=== PATIENT | male | born 1990 | race Caucasian/White ===

== ENCOUNTER 2018-07-15 15:48 | Emergency (ER) | payer OTHER ==
[~2018-07-15 15:48] MED LIST: ANAPROX DS550 MG PO; CIPROFLOXACIN500 MG PO; FLEXERIL5 MG PO; FLOMAX0.4 MG PO; ROBAXIN750 MG PO
[2018-07-15 16:16] LABS: BASO # 0.1 10*3/uL (0.0-0.1); BASO % 0.6 % (0.0-1.0); EOS # 0.1 10*3/uL (0.0-0.4); EOS % 1.1 % (1.0-4.0); HEMATOCRIT 42.8 % (42.0-52.0); HEMOGLOBIN 15.2 g/dl (14.0-18.0); LYMPH # 3.3 10*3/uL (1.3-4.4); LYMPH % 25.8 % (27.0-41.0); MEAN CELL VOLUME 88.4 fl (80.0-94.0); MEAN CORPUSCULAR HGB 31.4 pg (27.0-31.0); MEAN CORPUSCULAR HGB CONC 35.5 g/dl (33.0-37.0); MEAN PLATELET VOLUME 10.3 fl (9.6-12.3); MONO # 1.1 10*3/uL (0.1-1.0); MONO % 8.6 % (3.0-9.0); NEUT # 8.1 10*3/uL (2.3-7.9); NEUT % 63.7 % (47.0-73.0); PLATELET COUNT AUTOMATED 317 10*3/uL (130-400); RED BLOOD COUNT 4.84 10*6/uL (4.50-5.90); RED CELL DISTRI WIDTH 12.6 % (0-14.5); WHITE BLOOD COUNT 12.7 10*3/uL (4.8-10.8)
[2018-07-15 16:31] LABS: ALKALINE PHOSPHATASE 61 U/L (45-117); BUN 10 mg/dl (7-24); CHLORIDE 109 mmol/L (98-107); CREATININE 0.96 mg/dL (0.70-1.30); POTASSIUM 3.9 mmol/L (3.5-5.1); SGOT/AST 21 IU/L (3-35); SGPT/ALT 39 U/L (12-78); SODIUM 141 mmol/L (136-145); TOTAL PROTEIN 7.5 gm/dL (6.4-8.2)
[2018-07-15] MEDS ORDERED: PREDNISONE10 MG PO (16:42)
[2018-07-15] MEDS ORDERED: ZOFRAN4 MG PO (16:42)
[2018-07-15] MEDS ORDERED: CLARITIN10 MG PO (16:42)
[2018-07-15] MEDS ORDERED: FLONASE ALLERG9.9 ML NAS (16:42)
== END 2018-07-15 17:10 | disposition home or self-care (01) ==
LOC: ED 15:48
PROVIDERS: Nurse Practitioner Family
DX: B34.9 Viral infection, unspecified (principal); M54.5 Low back pain; R11.2 Nausea with vomiting, unspecified; R91.8 Other nonspecific abnormal finding of lung field; Z88.8 Allergy status to other drugs, medicaments and biological substances; Z91.040 Latex allergy status

== ENCOUNTER 2018-07-23 15:17 | Emergency (ER) | payer OTHER ==
[~2018-07-23 15:17] MED LIST changes: +CLARITIN10 MG PO; +FLONASE ALLERG9.9 ML NAS; +PREDNISONE10 MG PO; +ZOFRAN4 MG PO
[2018-07-23] MEDS ORDERED: ZITHROMAX250 MG PO (17:29)
== END 2018-07-23 17:50 | disposition home or self-care (01) ==
LOC: ED 15:17
DX: J40 Bronchitis, not specified as acute or chronic (principal)

== ENCOUNTER 2020-09-10 15:31 | Emergency (ER) | payer OTHER ==
[~2020-09-10] VITALS: Wt 95.3 kg
[~2020-09-10 15:31] MED LIST changes: +ZITHROMAX250 MG PO
[2020-09-10 17:52] LABS: BASO # 0.1 10*3/uL (0.0-0.1); BASO % 0.4 % (0.0-1.0); EOS % 0.3 % (1.0-4.0); LYMPH # 2.5 10*3/uL (1.3-4.4); LYMPH % 18.9 % (27.0-41.0); MEAN CELL VOLUME 90.7 fl (80.0-94.0); MEAN CORPUSCULAR HGB 31.1 pg (27.0-31.0); MEAN CORPUSCULAR HGB CONC 34.3 g/dl (33.0-37.0); MEAN PLATELET VOLUME 10.2 fl (9.6-12.3); MONO # 0.9 10*3/uL (0.1-1.0); MONO % 6.6 % (3.0-9.0); NEUT # 9.6 10*3/uL (2.3-7.9); NEUT % 73.5 % (47.0-73.0); PLATELET COUNT AUTOMATED 334 10*3/uL (130-400); RED BLOOD COUNT 5.18 10*6/uL (4.50-5.90); RED CELL DISTRI WIDTH 12.7 % (0-14.5); WHITE BLOOD COUNT 13.1 10*3/uL (4.8-10.8)
[2020-09-10 18:05] LABS: ALBUMIN 4.1 gm/dl (3.1-4.5); ALKALINE PHOSPHATASE 68 U/L (45-117); BUN 10 mg/dl (7-24); CHLORIDE 108 mmol/L (98-107); CREATININE 1.06 mg/dL (0.70-1.30); POTASSIUM 3.8 mmol/L (3.5-5.1); SGOT/AST 33 IU/L (3-35); SGPT/ALT 58 U/L (12-78); SODIUM 143 mmol/L (136-145); TOTAL PROTEIN 7.4 gm/dL (6.4-8.2)
[2020-09-10] MEDS ORDERED: PREDNISONE10 MG PO (18:16)
[2020-09-10] MEDS ORDERED: BENADRYL ALLERG25 M4 PO (18:16)
== END 2020-09-10 18:43 | disposition home or self-care (01) ==
LOC: ED 15:31
PROVIDERS: Family Medicine
DX: T78.40XA Allergy, unspecified, initial encounter (principal); Z79.899 Other long term (current) drug therapy; Z98.890 Other specified postprocedural states; X58.XXXA Exposure to other specified factors, initial encounter

== ENCOUNTER → 2020-11-17 | Outpatient (CLI) | payer OTHER ==
[~2020-11-17] MED LIST changes: +BENADRYL ALLERG25 M4 PO
== END | disposition home or self-care (01) ==
LOC: RAD 10:48
PROVIDERS: ATTEND Internal Medicine
DX: M79.672 Pain in left foot (principal)

== ENCOUNTER 2021-02-04 15:57 | Emergency (ER) | payer OTHER ==
[~2021-02-04] VITALS: Ht 180.3 cm; Wt 99.8 kg
[2021-02-04 19:02] LABS: BASO % 0.5 % (0.0-1.0); EOS % 0.3 % (1.0-4.0); HEMATOCRIT 43.5 % (42.0-52.0); LYMPH # 2.4 10*3/uL (1.3-4.4); LYMPH % 30.5 % (27.0-41.0); MEAN CORPUSCULAR HGB 30.7 pg (27.0-31.0); MEAN CORPUSCULAR HGB CONC 34.5 g/dl (33.0-37.0); MEAN PLATELET VOLUME 10.1 fl (9.6-12.3); NEUT # 4.3 10*3/uL (2.3-7.9); NEUT % 55.4 % (47.0-73.0); PLATELET COUNT AUTOMATED 263 10*3/uL (130-400); RED BLOOD COUNT 4.89 10*6/uL (4.50-5.90); RED CELL DISTRI WIDTH 12.5 % (0-14.5); WHITE BLOOD COUNT 7.8 10*3/uL (4.8-10.8)
[2021-02-04 19:18] LABS: ALBUMIN 3.7 gm/dl (3.1-4.5); ALKALINE PHOSPHATASE 59 U/L (45-117); BUN 11 mg/dl (7-24); CHLORIDE 109 mmol/L (98-107); CREATININE 0.88 mg/dL (0.70-1.30); POTASSIUM 3.8 mmol/L (3.5-5.1); SGOT/AST 55 IU/L (3-35); SGPT/ALT 102 U/L (12-78); SODIUM 140 mmol/L (136-145); TOTAL PROTEIN 7.3 gm/dL (6.4-8.2)
[2021-02-04] MEDS ORDERED: ZOFRAN4 MG PO (19:57)
== END 2021-02-04 20:00 | disposition home or self-care (01) ==
LOC: ED 15:57
PROVIDERS: Emergency Medicine
DX: U07.1 COVID-19 (principal)

== ENCOUNTER → 2023-09-19 | Outpatient (CLI) | payer OTHER | END | disposition home or self-care (01) | LOC: RAD 09:07 | PROVIDERS: ATTEND Nurse Practitioner Family | DX: R07.89 Other chest pain (principal) ==

== ENCOUNTER → 2025-02-11 | Outpatient (CLI) | payer OTHER | END | disposition home or self-care (01) | LOC: RAD 15:20 | PROVIDERS: ATTEND Nurse Practitioner Family | DX: M54.2 Cervicalgia (principal) ==